=== PATIENT | female | born 1995 | race Caucasian/White ===

== ENCOUNTER 2016-09-27 17:33 | Emergency (ER) | payer SELFPAY ==
[~2016-09-27] VITALS: Ht 167.6 cm; Wt 104.3 kg
[2016-09-27 17:33] VITALS: BP 117/69
[2016-09-27] MEDS ORDERED: PENICILLIN G BENZATHINE 2.4 MMU/4 ML ML IM ONE ×2 (18:00→18:11)
[2016-09-27] MEDS ORDERED: ACETAMINOPHEN ES 500 MG TABLET PO ONE (18:00)
[2016-09-27] MEDS ORDERED: ACETAMINOPHEN ES 500 MG TABLET ONE (18:10)
== END 2016-09-27 18:37 | disposition home or self-care (01) ==
LOC: ER 17:34
DX: J03.00 Acute streptococcal tonsillitis, unspecified (principal)
CPT/HCPCS: 96372; 99283; A4606; J0558; Z7610